=== PATIENT | female | born 1950 | race African-American/Black ===

== ENCOUNTER 2025-04-09 19:30 | Inpatient (IN) | payer MEDICARE, MEDICAID ==
[~2025-04-09] VITALS: Ht 167.6 cm; Wt 70.4 kg
[2025-04-09] MEDS: INSULIN REGULAR (HUMULIN R) 1000UNITS/10ML VIAL IV NR (00:45)
[2025-04-09 19:34] VITALS: RESP 35
[2025-04-09 20:22] LABS: BASOPHILS % 0.2 % (0.0-2.0); EOSINOPHILS % 0.0 % (0.0-5.0); HEMATOCRIT. 41.6 % (36.0-48.0); HEMOGLOBIN. 13.1 g/dL (12.0-16.0); LYMPHOCYTES % 11.7 % (20.0-50.0); MEAN PLATELET VOLUME 10.9 fl (7.4-10.4); MONOCYTES % 5.7 % (2.0-8.0); NEUTROPHILS % 82.4 % (40.0-76.0); PLATELET 238 x1000/uL (130-400); RED BLOOD CELL COUNT 4.66 mill/uL (4.2-5.4); RED CELL DISTRIBUTION WIDTH 13.8 % (11.6-14.6)
[2025-04-09 20:32] LABS: INR 1.0
[2025-04-09 20:36] LABS: CREATININE 1.5 mg/dL (0.6-1.0); UREA NITROGEN BLOOD 20 mg/dL (9-23)
[2025-04-09 20:37] LABS: PROTEIN TOTAL 7.4 g/dL (6.0-8.3)
[2025-04-09 20:38] LABS: ASPARTATE AMINOTRANSFERASE 35 IU/L (<34); BILIRUBIN DIRECT 0.2 mg/dL (<=3.0)
[2025-04-09 20:39] LABS: BILIRUBIN TOTAL 0.8 mg/dL (0.1-1.0)
[2025-04-09 21:12] LABS: TROPONIN I HIGH SENSITIVITY 461 ng/L (3.0-34)
[2025-04-09] MEDS: LEVOFLOXACIN 750MG PREMIX 150 ML IV ONE (21:33)
[2025-04-09] MEDS: ASPIRIN 325MG TABLET PO ONE (21:33)
[2025-04-09 21:40] LABS: BG DEOXYHEMOGLOBIN 37.4 % (0.0-5.0)
[2025-04-09 23:08] LABS: GLUCOSE URINE 3+ (NEGATIVE); KETONES URINE NEGATIVE (NEGATIVE); LEUKOCYTE ESTERASE URINE NEGATIVE (NEGATIVE); NITRITE URINE NEGATIVE (NEGATIVE); OCCULT BLOOD URINE 1+ (NEGATIVE); PH URINE 5.5 (4.5-8.0); PROTEIN URINE 2+ (NEGATIVE); SPECIFIC GRAVITY URINE 1.018 (1.005-1.030); UROBILINOGEN URINE 1.0 E.U./dL (0.2-1.0)
[2025-04-09 23:18] LABS: TROPONIN I HIGH SENSITIVITY 15597 ng/L (3.0-34)
[2025-04-09 23:34] LABS: COLOR URINE STRAW (YELLOW)
[2025-04-09] MEDS: INSULIN REGULAR (HUMULIN R) 1000UNITS/10ML VIAL IV ONE (23:35)
[2025-04-09 23:36] LABS: CLARITY URINE SL HAZY (CLEAR)
[2025-04-09 23:37] LABS: RBC URINE NONE SEEN /hpf (0-2)
[2025-04-09 23:38] LABS: BACTERIA URINE TRACE; MUCUS URINE TRACE /lpf (< = 2+); SQUAMOUS EPITHELIAL CELL URINE 1+ /lpf (RARE/1+)
[2025-04-09] MEDS ORDERED: DEXTROSE 50% WATER 50ML SYRINGE IV PRN (23:45)
[2025-04-09] MEDS ORDERED: PIPERACILLIN/TAZO 3.375G/50ML 50 ML IV STA (23:54)
[2025-04-09] MEDS ORDERED: VANCOMYCIN 1G PREMIX 200 ML IV STA (23:54)
[2025-04-10] VITALS (14 sets, daily range): BP systolic 110–153; BP diastolic 65–111; PULSE 78–112; RESP 19–26; TEMP 35.8–36.8; O2SAT 93–98
[2025-04-10] MEDS ORDERED: LISINOPRIL 20MG TABLET PO SCH (00:30)
[2025-04-10] MEDS ORDERED: NITROGLYCERIN 0.4MG TABLET SL SL PRN (00:30)
[2025-04-10] MEDS ORDERED: CLONIDINE 0.1MG TABLET PO PRN (00:30)
[2025-04-10] MEDS ORDERED: ACETAMINOPHEN 325MG TABLET PO PRN ×2 (00:30)
[2025-04-10] MEDS ORDERED: IPRATROPIUM/ALBUTEROL 0.5-3(2.5)MG/3ML NEB HHN PRN (00:30)
[2025-04-10] MEDS ORDERED: ONDANSETRON HCL 4MG/2ML INJ IV PRN (00:30)
[2025-04-10 01:02] LABS: BG BASE EXCESS -6.7 mmol/L (-2.0-3.0); BG CARBOXYHEMOGLOBIN 0.4 % (0.5-1.5); BG DEOXYHEMOGLOBIN 6.9 % (0.0-5.0); BG FRACTION INSPIRED OXYGEN 36; BG HCO3 ACT 16.2 mmol/L (21.0-28.0); BG METHEMOGLOBIN 0.3 % (0.5-1.5); BG OXYGEN SATURATION 93.1 % (94.0-98.0); BG OXYHEMOGLOBIN 92.4 % (94.0-98.0); BG PCO2 25.9 mmHg (32.0-45.0); BG PH 7.415 (7.350-7.450); BG PO2 62.0 mmHg (83.0-108.0); BG SAMPLE SITE RIGHT RADIAL; BG TOTAL HEMOGLOBIN 12.8 g/dL (12.0-16.0); BG VENT MODE NASAL CANNULA
[2025-04-10] MEDS: ENOXAPARIN 80MG/0.8ML SYR SUBCUT SCH ×2 (01:26→12:49)
[2025-04-10] MEDS: CLOPIDOGREL 75MG TABLET PO SCH (01:26)
[2025-04-10] MEDS: ATORVASTATIN CALCIUM 40MG TABLET PO SCH (01:32)
[2025-04-10 01:34] LABS: CREATININE 1.3 mg/dL (0.6-1.0); UREA NITROGEN BLOOD 24 mg/dL (9-23)
[2025-04-10 01:36] LABS: PHOSPHORUS 3.7 mg/dL (2.5-4.9)
[2025-04-10] MEDS: FUROSEMIDE 40MG/4ML VIAL IVP NR (01:46)
[2025-04-10] MEDS: CEFTRIAXONE 1GM/50ML 50 ML IV SCH (03:53)
[2025-04-10 07:12] LABS: CREATININE 1.1 mg/dL (0.6-1.0); UREA NITROGEN BLOOD 26.0 mg/dL (9-23)
[2025-04-10] MEDS: BLOOD SUGAR DIAGNOSTIC STRIP TEST SCH (07:24)
[2025-04-10] MEDS: INSULIN LISPRO 100 UNITS/ML SUBCUT SCH (07:25)
[2025-04-10 07:32] LABS: TROPONIN I HIGH SENSITIVITY 36359 ng/L (3.0-34)
[2025-04-10] MEDS: INSULIN GLARGINE 100 UNITS/ML SUBCUT SCH (09:00)
[2025-04-10] MEDS ORDERED: AZITHROMYCIN 500MG/250ML 250 ML IV SCH (09:00)
[2025-04-10] MEDS ORDERED: DOXYCYCLINE HYCLATE 100 MG/VIAL IV SCH (09:00)
[2025-04-10] MEDS ORDERED: CARVEDILOL 3.125 MG TABLET PO SCH (09:00)
[2025-04-10] MEDS: FUROSEMIDE 40MG/4ML VIAL IVP SCH (10:06)
[2025-04-10] MEDS: ASPIRIN 81MG EC TABLET PO SCH (10:06)
[2025-04-10] MEDS: CARVEDILOL 6.25 MG TABLET PO SCH (10:06)
[2025-04-10] MEDS: PANTOPRAZOLE SODIUM 40 MG/VIAL IV SCH (10:07)
[2025-04-10] MEDS: DOXYCYCLINE 100MG/100ML 100 ML IV SCH (10:07)
[2025-04-10 19:23] LABS: SODIUM URINE RANDOM 98 mEq/L
[2025-04-10 19:26] LABS: TROPONIN I HIGH SENSITIVITY 12450 ng/L (3.0-34)
[2025-04-10 19:30] LABS: *AMPHETAMINES SCREEN URINE NEGATIVE (NEGATIVE); *BARBITURATES SCREEN URINE NEGATIVE (NEGATIVE); *BENZODIAZEPINES SCREEN URINE NEGATIVE (NEGATIVE); *COCAINE SCREEN URINE NEGATIVE (NEGATIVE); ECSTASY MDMA SCREEN URINE NEGATIVE (NEGATIVE); METHADONE URINE SCREEN NEGATIVE (NEGATIVE); OPIATES URINE SCREEN PRESUMPTIVE POSITIVE (NEGATIVE)
[2025-04-10 19:31] LABS: CANNABINOID URINE SCREEN NEGATIVE (NEGATIVE); PHENCYCLIDINE URINE SCREEN NEGATIVE (NEGATIVE)
[2025-04-10 19:35] LABS: OSMOLALITY URINE 367 mOsm/kg (500-850)
[2025-04-10] MEDS: PNEUMOCOCCAL 20-VAL CONJ-DIP CRM 0.5ML IM ONE (21:00)
[2025-04-10] MEDS: INFLUENZA VACCINE 05/PF 0.5 ML SYRINGE IM ONE (21:00)
[2025-04-11] VITALS (13 sets, daily range): BP systolic 111–152; BP diastolic 61–101; PULSE 76–89; RESP 16–30; TEMP 36.3–36.9; O2SAT 94–100
[2025-04-11 07:20] LABS: CREATININE 1.4 mg/dL (0.6-1.0)
[2025-04-11 07:21] LABS: BASOPHILS % 0.4 % (0.0-2.0); EOSINOPHILS % 1.1 % (0.0-5.0); HEMATOCRIT. 36.4 % (36.0-48.0); HEMOGLOBIN. 11.9 g/dL (12.0-16.0); LDL CHOLESTEROL 121.0 mg/dL (5-100); LYMPHOCYTES % 33.7 % (20.0-50.0); MEAN PLATELET VOLUME 10.6 fl (7.4-10.4); MONOCYTES % 8.3 % (2.0-8.0); NEUTROPHILS % 56.5 % (40.0-76.0); PLATELET 166 x1000/uL (130-400); RED BLOOD CELL COUNT 4.13 mill/uL (4.2-5.4); RED CELL DISTRIBUTION WIDTH 13.3 % (11.6-14.6); TRIGLYCERIDE 129.0 mg/dL (0-150); UREA NITROGEN BLOOD 29.0 mg/dL (9-23)
[2025-04-11 07:22] LABS: T4 FREE 1.32 ng/dL (0.89-1.76)
[2025-04-11] MEDS: LOSARTAN 50 MG TABLET PO SCH (12:19)
[2025-04-11 12:29] LABS: BG BASE EXCESS -4.6 mmol/L (-2.0-3.0); BG CARBOXYHEMOGLOBIN 0.3 % (0.5-1.5); BG DEOXYHEMOGLOBIN 6.7 % (0.0-5.0); BG FRACTION INSPIRED OXYGEN 21; BG HCO3 ACT 18.3 mmol/L (21.0-28.0); BG METHEMOGLOBIN 0.3 % (0.5-1.5); BG OXYGEN SATURATION 93.3 % (94.0-98.0); BG OXYHEMOGLOBIN 92.7 % (94.0-98.0); BG PCO2 28.0 mmHg (32.0-45.0); BG PH 7.433 (7.350-7.450); BG PO2 65.1 mmHg (83.0-108.0); BG SAMPLE SITE RIGHT RADIAL; BG TOTAL HEMOGLOBIN 12.8 g/dL (12.0-16.0); BG VENT MODE ROOM AIR
[2025-04-11] MEDS: IPRATROPIUM/ALBUTEROL 0.5-3(2.5)MG/3ML NEB HHN SCH (15:05)
[2025-04-11] MEDS ORDERED: ENOXAPARIN 40MG/0.4ML SYR SUBCUT SCH (21:00)
[2025-04-12] VITALS (8 sets, daily range): BP systolic 130–151; BP diastolic 58–99; PULSE 75–88; RESP 16–26; TEMP 35.8–36.9; O2SAT 96–100
[2025-04-12 06:10] LABS: CREATININE 1.4 mg/dL (0.6-1.0); UREA NITROGEN BLOOD 36.0 mg/dL (9-23)
[2025-04-12 06:13] LABS: TROPONIN I HIGH SENSITIVITY 5747 ng/L (3.0-34)
[2025-04-12 06:55] LABS: BASOPHILS % 0.3 % (0.0-2.0); EOSINOPHILS % 1.0 % (0.0-5.0); HEMATOCRIT. 37.6 % (36.0-48.0); HEMOGLOBIN. 12.3 g/dL (12.0-16.0); LYMPHOCYTES % 30.1 % (20.0-50.0); MEAN PLATELET VOLUME 10.5 fl (7.4-10.4); MONOCYTES % 10.7 % (2.0-8.0); NEUTROPHILS % 57.9 % (40.0-76.0); PLATELET 139 x1000/uL (130-400); RED BLOOD CELL COUNT 4.26 mill/uL (4.2-5.4); RED CELL DISTRIBUTION WIDTH 13.5 % (11.6-14.6)
[2025-04-12] MEDS: FAMOTIDINE 20MG/2ML VIAL IV SCH (08:19)
[2025-04-12] MEDS ORDERED: LIDOCAINE HCL 1% 20ML VIAL ONE (08:23)
[2025-04-12] MEDS ORDERED: IODIXANOL 320MG/ML 100 ML BOTTLE IV ONE (08:23)
[2025-04-12] MEDS ORDERED: HEPARIN 1000 UNITS/ML 10ML ONE (08:23)
[2025-04-12] MEDS ORDERED: MIDAZOLAM HCL 2 MG/2 ML VIAL ONE (08:59)
[2025-04-12] MEDS ORDERED: CLOPIDOGREL 75MG TABLET PO SCH (09:00)
[2025-04-12] MEDS ORDERED: FENTANYL CITRATE/PF 50MCG/ML 2ML VIAL ONE (09:00)
[2025-04-12] MEDS ORDERED: ATROPINE SULFATE 1MG/10ML SYR IV PRN (10:00)
[2025-04-12] MEDS: IOHEXOL-350 100 ML BOTTLE ONE (10:07)
[2025-04-12] MEDS: ENOXAPARIN 40MG/0.4ML SYR SUBCUT SCH (11:14)
[2025-04-12] MEDS ORDERED: ACETAMINOPHEN 325MG TABLET PO PRN (14:45)
[2025-04-12] MEDS: CHLORHEXIDINE GLUCONATE 4% EXTERNAL USE TOP SCH (20:51)
[2025-04-12] MEDS ORDERED: DIPHENHYDRAMINE 25MG CAPSULE PO PRN (21:00)
[2025-04-12] MEDS ORDERED: BISACODYL 10MG SUPP PR PRN (21:00)
[2025-04-12] MEDS: DOCUSATE SODIUM 100MG CAPSULE PO SCH (21:49)
[2025-04-12] MEDS: ASCORBIC ACID 500 MG TABLET PO SCH (21:51)
[2025-04-12] MEDS: ALLOPURINOL 300 MG TABLET PO SCH (21:51)
[2025-04-13] VITALS (57 sets, daily range): BP systolic 105–140; BP diastolic 63–95; PULSE 68–90; RESP 11–34; TEMP 36–36.9; O2SAT 95–100
[2025-04-13] MEDS ORDERED: DOBUTAMINE 250 MG/250 ML PREMIX IV PRN (05:00)
[2025-04-13] MEDS ORDERED: DEL NIDO CARDIOPLEGIA 1,000 ML (PREMIX) IV NR ×2 (05:00)
[2025-04-13] MEDS ORDERED: DOPAMINE 400MG/250ML PREMIX 250 ML IV PRN (05:00)
[2025-04-13] MEDS ORDERED: AMINOCAPROIC ACID 5,000 MG in SODIUM CHLORIDE 0.9% 250 ML IV PRN (05:00)
[2025-04-13] MEDS ORDERED: NICARDIPINE 40MG/200ML PREMIX 200 ML IV PRN (05:00)
[2025-04-13] MEDS: INSULIN REGULAR 100U/100ML PMX 100 ML IV SCH ×2 (05:00→11:06)
[2025-04-13] MEDS ORDERED: NOREPINEPHRINE 8MG/250ML PMX 250 ML IV PRN (05:00)
[2025-04-13] MEDS: VANCOMYCIN 1G PREMIX 200 ML IV SCH (05:00)
[2025-04-13] MEDS ORDERED: PAPAVERINE HCL 180MG in SODIUM CHLORIDE 0.9% 24ML IV PRN (05:00)
[2025-04-13] MEDS ORDERED: LR with VERAPAMIL, NTG, HEPARIN, SODIUM BICARBONATE (Soln) IV PRN (05:00)
[2025-04-13 05:31] LABS: BASOPHILS % 0.4 % (0.0-2.0); EOSINOPHILS % 1.8 % (0.0-5.0); HEMATOCRIT. 38.3 % (36.0-48.0); HEMOGLOBIN. 12.4 g/dL (12.0-16.0); LYMPHOCYTES % 30.5 % (20.0-50.0); MEAN PLATELET VOLUME 10.9 fl (7.4-10.4); MONOCYTES % 9.9 % (2.0-8.0); NEUTROPHILS % 57.4 % (40.0-76.0); PLATELET 163 x1000/uL (130-400); RED BLOOD CELL COUNT 4.38 mill/uL (4.2-5.4); RED CELL DISTRIBUTION WIDTH 13.6 % (11.6-14.6)
[2025-04-13 05:39] LABS: CREATININE 1.2 mg/dL (0.6-1.0); UREA NITROGEN BLOOD 21.0 mg/dL (9-23)
[2025-04-13] MEDS ORDERED: POLYMYXIN B SULFATE 500000 UNITS/VIAL ONE (05:50)
[2025-04-13] MEDS ORDERED: THROMBIN (BOVINE) 5000 UNITS/VIAL TOP ONE (05:50)
[2025-04-13] MEDS: CHLORHEXIDINE GLUCONATE 4% EXTERNAL USE TOP SCH (06:00)
[2025-04-13] MEDS ORDERED: HEPARIN 1000 UNITS/ML 10ML ONE ×2 (06:17→09:35)
[2025-04-13] MEDS ORDERED: SEVOFLURANE 250 ML LIQUID INH ONE (06:17)
[2025-04-13] MEDS ORDERED: ACETAMINOPHEN 1000MG/100ML 100 ML IV ONE (06:26)
[2025-04-13] MEDS ORDERED: SKIN ADHESIVE 0.7 GM EA TOP ONE (06:26)
[2025-04-13] MEDS ORDERED: DEXMEDETOMIDINE 100 ML IV ONE (06:32)
[2025-04-13] MEDS ORDERED: ROCURONIUM BROMIDE 10MG/ML VIAL 5ML IV ONE ×2 (07:05→09:00)
[2025-04-13] MEDS ORDERED: FENTANYL CITRATE/PF 50MCG/ML 2ML VIAL ONE (07:06)
[2025-04-13] MEDS ORDERED: MAGNESIUM SULFATE 5GM/10ML VIAL IV ONE (07:11)
[2025-04-13] MEDS ORDERED: HEPARIN 10,000 UNITS/ML VIAL ONE (07:58)
[2025-04-13] MEDS ORDERED: POTASSIUM CHLORIDE 40MEQ/20ML INJ IV ONE (07:58)
[2025-04-13] MEDS ORDERED: CALCIUM CHLORIDE 1GM/10ML SYR IV ONE (08:45)
[2025-04-13] MEDS ORDERED: SODIUM BICARBONATE 8.4% 50MEQ/50ML SYR IV ONE ×2 (08:52→10:02)
[2025-04-13] MEDS ORDERED: FUROSEMIDE 100MG/10ML VIAL ONE (09:00)
[2025-04-13] MEDS: ASPIRIN 81MG TABLET PO SCH (09:00)
[2025-04-13] MEDS ORDERED: AMINOCAPROIC ACID 250 MG/ML 20ML VIAL ONE (09:00)
[2025-04-13] MEDS ORDERED: ATROPINE SULFATE 1MG/10ML SYR ONE (09:30)
[2025-04-13] MEDS ORDERED: ONDANSETRON HCL 4MG/2ML INJ ONE ×2 (09:35→09:52)
[2025-04-13] MEDS ORDERED: PROTAMINE SULFATE 10MG/ML VIAL 25ML IV ONE (09:38)
[2025-04-13] MEDS ORDERED: DESMOPRESSIN ACETATE 4MCG/ML AMP ONE (09:43)
[2025-04-13] MEDS: BLOOD SUGAR DIAGNOSTIC STRIP TEST SCH (10:00)
[2025-04-13] MEDS ORDERED: DEXTROSE 50% WATER 50ML SYRINGE IV PRN ×2 (10:00)
[2025-04-13] MEDS ORDERED: KCL 10MEQ/50ML PREMIX 200 ML IV PRN (10:00)
[2025-04-13] MEDS: DEXT 5%/0.45% NACL 1000ML 1,000 ML IV SCH (10:00)
[2025-04-13] MEDS ORDERED: KCL 10MEQ/50ML PREMIX 150 ML IV PRN (10:00)
[2025-04-13] MEDS: DOPAMINE 400MG/250ML PREMIX 250 ML IV SCH (10:15)
[2025-04-13] MEDS ORDERED: SODIUM CHLORIDE 0.9% 500 ML IV PRN (10:15)
[2025-04-13] MEDS ORDERED: MAGNESIUM 2 G PREMIX 50 ML IV PRN (10:15)
[2025-04-13] MEDS ORDERED: EPINEPHRINE 5 MG in DEXT 5% WATER 245 ML IV SCH (10:15)
[2025-04-13] MEDS ORDERED: MAGNESIUM SULFATE 3 GM in DEXT 5% WATER 100 ML IV PRN (10:15)
[2025-04-13] MEDS ORDERED: MORPHINE SULFATE 2 MG/ML INJ (NOT FOR IM USE) IV PRN (10:15)
[2025-04-13] MEDS ORDERED: CALCIUM CHLORIDE 3,000 MG in DEXT 5% WATER 250 ML IV PRN (10:15)
[2025-04-13] MEDS: IPRATROPIUM/ALBUTEROL 0.5-3(2.5)MG/3ML NEB HHN SCH (10:15)
[2025-04-13] MEDS ORDERED: ALBUMIN HUMAN 25GM/100ML (25%) IV PRN (10:15)
[2025-04-13] MEDS ORDERED: CALCIUM CHLORIDE 5,000 MG in DEXT 5% WATER 500 ML IV PRN (10:15)
[2025-04-13] MEDS ORDERED: MAGNESIUM 1 G PREMIX 100 ML IV PRN (10:15)
[2025-04-13] MEDS ORDERED: ALBUMIN HUMAN 12.5G/250ML (5%) IV PRN (10:15)
[2025-04-13] MEDS ORDERED: ACETAMINOPHEN 325MG TABLET PO PRN (10:15)
[2025-04-13] MEDS ORDERED: ONDANSETRON HCL 4MG/2ML INJ IV PRN (10:15)
[2025-04-13] MEDS ORDERED: KETOROLAC 30MG/ML VIAL ONE (10:22)
[2025-04-13 10:26] LABS: BASOPHILS % 0.2 % (0.0-2.0); EOSINOPHILS % 2.0 % (0.0-5.0); HEMATOCRIT. 31.7 % (36.0-48.0); HEMOGLOBIN. 10.6 g/dL (12.0-16.0); LYMPHOCYTES % 36.4 % (20.0-50.0); MEAN PLATELET VOLUME 10.6 fl (7.4-10.4); MONOCYTES % 4.6 % (2.0-8.0); NEUTROPHILS % 56.8 % (40.0-76.0); PLATELET 220 x1000/uL (130-400); RED BLOOD CELL COUNT 3.67 mill/uL (4.2-5.4); RED CELL DISTRIBUTION WIDTH 13.5 % (11.6-14.6)
[2025-04-13 10:36] LABS: INR 1.1
[2025-04-13 10:47] LABS: CREATININE 1.2 mg/dL (0.6-1.0); UREA NITROGEN BLOOD 29 mg/dL (9-23)
[2025-04-13 10:49] LABS: ASPARTATE AMINOTRANSFERASE 65 IU/L (<34); BILIRUBIN TOTAL 0.4 mg/dL (0.1-1.0); PHOSPHORUS 3.4 mg/dL (2.5-4.9)
[2025-04-13] MEDS: EPINEPHRINE 5 MG in DEXT 5% WATER 250 ML IV PRN (11:00)
[2025-04-13 11:01] LABS: PROTEIN TOTAL 5.1 g/dL (6.0-8.3)
[2025-04-13 11:06] LABS: BG BASE EXCESS -0.1 mmol/L (-2.0-3.0); BG CARBOXYHEMOGLOBIN 1.1 % (0.5-1.5); BG DEOXYHEMOGLOBIN 1.3 % (0.0-5.0); BG FLOW(L/min) 15.00 L/min; BG FRACTION INSPIRED OXYGEN 100; BG HCO3 ACT 24.9 mmol/L (21.0-28.0); BG METHEMOGLOBIN 0.0 % (0.5-1.5); BG OXYGEN SATURATION 98.7 % (94.0-98.0); BG OXYHEMOGLOBIN 97.6 % (94.0-98.0); BG PCO2 41.9 mmHg (32.0-45.0); BG PH 7.392 (7.350-7.450); BG PO2 125.7 mmHg (83.0-108.0); BG SAMPLE SITE ALINE; BG TOTAL HEMOGLOBIN 12.7 g/dL (12.0-16.0); BG VENT MODE MASK - NRB
[2025-04-13 11:41] LABS: BASOPHILS % 0.2 % (0.0-2.0); EOSINOPHILS % 1.9 % (0.0-5.0); HEMATOCRIT. 36.6 % (36.0-48.0); HEMOGLOBIN. 11.9 g/dL (12.0-16.0); LYMPHOCYTES % 22.2 % (20.0-50.0); MEAN PLATELET VOLUME 10.0 fl (7.4-10.4); MONOCYTES % 7.4 % (2.0-8.0); NEUTROPHILS % 68.3 % (40.0-76.0); PLATELET 221 x1000/uL (130-400); RED BLOOD CELL COUNT 4.24 mill/uL (4.2-5.4); RED CELL DISTRIBUTION WIDTH 13.7 % (11.6-14.6)
[2025-04-13 11:58] LABS: CREATININE 1.2 mg/dL (0.6-1.0); UREA NITROGEN BLOOD 27 mg/dL (9-23)
[2025-04-13 12:00] LABS: PHOSPHORUS 3.3 mg/dL (2.5-4.9)
[2025-04-13] MEDS ORDERED: POTASSIUM CHLORIDE 40 MEQ in DEXT 5% WATER 230 ML IV ONE (12:30)
[2025-04-13] MEDS: KCL 20MEQ/100ML X 2 FOR TOTAL KCL 40MEQ/200ML IV SCH (12:45)
[2025-04-13] MEDS: MAGNESIUM HYDROXIDE 400MG/5ML 30ML UDC PO SCH (13:05)
[2025-04-13] MEDS: KCL 20MEQ/100ML PREMIX 100 ML IV SCH (13:06)
[2025-04-13] MEDS: CLOPIDOGREL 75MG TABLET PO SCH (13:18)
[2025-04-13] MEDS: ASPIRIN 81MG EC TABLET PO SCH (13:18)
[2025-04-13] MEDS: MAGNESIUM 2 G PREMIX 50 ML IV SCH (14:23)
[2025-04-13] MEDS: CEFAZOLIN 1000MG PREMIX 50 ML IV SCH (16:23)
[2025-04-13] MEDS: ACETAMINOPHEN 325MG TABLET PO PRN (16:29)
[2025-04-13 17:36] LABS: BASOPHILS % 0.2 % (0.0-2.0); EOSINOPHILS % 0.1 % (0.0-5.0); HEMATOCRIT. 36.2 % (36.0-48.0); HEMOGLOBIN. 11.8 g/dL (12.0-16.0); LYMPHOCYTES % 11.7 % (20.0-50.0); MEAN PLATELET VOLUME 9.9 fl (7.4-10.4); MONOCYTES % 8.4 % (2.0-8.0); NEUTROPHILS % 79.6 % (40.0-76.0); PLATELET 307 x1000/uL (130-400); RED BLOOD CELL COUNT 4.22 mill/uL (4.2-5.4); RED CELL DISTRIBUTION WIDTH 13.5 % (11.6-14.6)
[2025-04-13 17:50] LABS: CREATININE 1.2 mg/dL (0.6-1.0); UREA NITROGEN BLOOD 26 mg/dL (9-23)
[2025-04-13 17:52] LABS: PHOSPHORUS 3.9 mg/dL (2.5-4.9)
[2025-04-13] MEDS: METOCLOPRAMIDE HCL 10MG/2ML VIAL IV SCH (18:19)
[2025-04-13 18:31] LABS: INR 1.0
[2025-04-13] MEDS: DOCUSATE SODIUM 100MG CAPSULE PO SCH (20:49)
[2025-04-13] MEDS: OXYCODONE HCL/ACETAMINOPHEN 5/325MG TABLET PO PRN (20:52)
[2025-04-13] MEDS: BACITRACIN 14GM TUBE TOP SCH (21:09)
[2025-04-13 22:11] LABS: BASOPHILS % 0.1 % (0.0-2.0); EOSINOPHILS % 0.1 % (0.0-5.0); HEMATOCRIT. 32.4 % (36.0-48.0); HEMOGLOBIN. 10.7 g/dL (12.0-16.0); LYMPHOCYTES % 12.9 % (20.0-50.0); MEAN PLATELET VOLUME 10.3 fl (7.4-10.4); MONOCYTES % 8.2 % (2.0-8.0); NEUTROPHILS % 78.7 % (40.0-76.0); PLATELET 251 x1000/uL (130-400); RED BLOOD CELL COUNT 3.75 mill/uL (4.2-5.4); RED CELL DISTRIBUTION WIDTH 13.5 % (11.6-14.6)
[2025-04-13 22:26] LABS: CREATININE 1.1 mg/dL (0.6-1.0)
[2025-04-13 22:27] LABS: UREA NITROGEN BLOOD 24 mg/dL (9-23)
[2025-04-13 22:29] LABS: PHOSPHORUS 3.6 mg/dL (2.5-4.9)
[2025-04-13] MEDS: KCL 10MEQ/50ML PREMIX 100 ML IV PRN (22:35)
[2025-04-13] MEDS: MAGNESIUM 2 G PREMIX 50 ML IV PRN (22:38)
[2025-04-14] VITALS (102 sets, daily range): BP systolic 103–183; BP diastolic 59–101; PULSE 72–187; RESP 11–38; TEMP 36.6–37; O2SAT 94–100
[2025-04-14] MEDS ORDERED: CALCIUM GLUCONATE 1GM PREMIX 50 ML IV ONE ×3 (01:30)
[2025-04-14] MEDS: FUROSEMIDE 40MG/4ML VIAL IVP NR (01:42)
[2025-04-14] MEDS: CALCIUM GLUCONATE 3,000 MG in DEXT 5% WATER 70 ML IV NR (01:56)
[2025-04-14 06:56] LABS: BASOPHILS % 0.2 % (0.0-2.0); EOSINOPHILS % 0.2 % (0.0-5.0); HEMATOCRIT. 35.0 % (36.0-48.0); HEMOGLOBIN. 11.6 g/dL (12.0-16.0); LYMPHOCYTES % 14.3 % (20.0-50.0); MEAN PLATELET VOLUME 10.1 fl (7.4-10.4); MONOCYTES % 8.2 % (2.0-8.0); NEUTROPHILS % 77.1 % (40.0-76.0); PLATELET 228 x1000/uL (130-400); RED BLOOD CELL COUNT 4.09 mill/uL (4.2-5.4); RED CELL DISTRIBUTION WIDTH 13.5 % (11.6-14.6)
[2025-04-14 07:09] LABS: CREATININE 1.4 mg/dL (0.6-1.0)
[2025-04-14 07:12] LABS: UREA NITROGEN BLOOD 22 mg/dL (9-23)
[2025-04-14 07:14] LABS: PHOSPHORUS 4.3 mg/dL (2.5-4.9)
[2025-04-14] MEDS: BLOOD SUGAR DIAGNOSTIC STRIP TEST SCH (07:30)
[2025-04-14] MEDS: ASPIRIN 81MG EC TABLET PO SCH (08:05)
[2025-04-14] MEDS: CLOPIDOGREL 75MG TABLET PO SCH (08:05)
[2025-04-14] MEDS: KETOROLAC 30MG/ML VIAL IV PRN (08:05)
[2025-04-14] MEDS: FUROSEMIDE 100MG/10ML VIAL IVP NR (08:41)
[2025-04-14] MEDS: MIDODRINE HCL 5MG TABLET PO SCH (08:41)
[2025-04-14] MEDS: METOLAZONE 10MG TABLET PO NR (10:04)
[2025-04-14] MEDS: BUMETANIDE 2.5MG/10ML VIAL IV NR (10:04)
[2025-04-14 10:08] LABS: BG BASE EXCESS 0.9 mmol/L (-2.0-3.0); BG CARBOXYHEMOGLOBIN 0.9 % (0.5-1.5); BG DEOXYHEMOGLOBIN 8.6 % (0.0-5.0); BG FLOW(L/min) 9.00 L/min; BG FRACTION INSPIRED OXYGEN 60; BG HCO3 ACT 24.4 mmol/L (21.0-28.0); BG METHEMOGLOBIN 0.3 % (0.5-1.5); BG OXYGEN SATURATION 91.3 % (94.0-98.0); BG OXYHEMOGLOBIN 90.2 % (94.0-98.0); BG PCO2 35.3 mmHg (32.0-45.0); BG PH 7.458 (7.350-7.450); BG PO2 57.3 mmHg (83.0-108.0); BG SAMPLE SITE RIGHT BRACHIAL; BG TOTAL HEMOGLOBIN 12.3 g/dL (12.0-16.0); BG VENT MODE MASK - SIMPLE
[2025-04-14] MEDS ORDERED: AMIODARONE 360MG/200ML 200 ML IV SCH (15:30)
[2025-04-14] MEDS: MAGNESIUM 1 G PREMIX 100 ML IV PRN (15:31)
[2025-04-14] MEDS: AMIODARONE 150MG/100ML D5W 100 ML IV SCH (15:32)
[2025-04-14] MEDS: AMIODARONE HCL 900 MG in DEXT 5% WATER 500 ML IV SCH (15:49)
[2025-04-14] MEDS: AMIODARONE 200MG TABLET PO SCH (20:36)
[2025-04-14] MEDS: GUAIFENESIN 600MG ER TABLET PO SCH (20:36)
[2025-04-14] MEDS: DIPHENHYDRAMINE 50MG/ML VIAL IV NR (20:37)
[2025-04-15] VITALS (96 sets, daily range): BP systolic 103–162; BP diastolic 47–132; PULSE 70–93; RESP 12–36; TEMP 36.1–37; O2SAT 89–100
[2025-04-15 06:41] LABS: BASOPHILS % 0.2 % (0.0-2.0); EOSINOPHILS % 0.4 % (0.0-5.0); HEMATOCRIT. 35.6 % (36.0-48.0); HEMOGLOBIN. 11.6 g/dL (12.0-16.0); LYMPHOCYTES % 19.5 % (20.0-50.0); MEAN PLATELET VOLUME 10.8 fl (7.4-10.4); MONOCYTES % 11.7 % (2.0-8.0); NEUTROPHILS % 68.2 % (40.0-76.0); PLATELET 172 x1000/uL (130-400); RED BLOOD CELL COUNT 4.09 mill/uL (4.2-5.4); RED CELL DISTRIBUTION WIDTH 13.3 % (11.6-14.6)
[2025-04-15 07:10] LABS: CREATININE 1.6 mg/dL (0.6-1.0); UREA NITROGEN BLOOD 26 mg/dL (9-23)
[2025-04-15 07:12] LABS: PHOSPHORUS 5.3 mg/dL (2.5-4.9)
[2025-04-15] MEDS ORDERED: TRAMADOL HCL/ACETAMINOPHEN 37.5/325MG TABLET PO PRN (08:00)
[2025-04-15] MEDS: MAGNESIUM 2 G PREMIX 50 ML IV SCH (09:14)
[2025-04-15] MEDS: BUMETANIDE 2.5MG/10ML VIAL IV SCH (09:30)
[2025-04-15] MEDS: ASPIRIN 81MG TABLET PO SCH (09:34)
[2025-04-15] MEDS: CLOPIDOGREL 75MG TABLET PO SCH (09:34)
[2025-04-15] MEDS: KCL 20MEQ/100ML PREMIX 100 ML IV SCH (09:37)
[2025-04-15] MEDS: METOLAZONE 10MG TABLET PO SCH (09:37)
[2025-04-15] MEDS ORDERED: BLOOD SUGAR DIAGNOSTIC STRIP TEST SCH (12:50)
[2025-04-15] MEDS ORDERED: DOPAMINE 400MG/250ML PREMIX 250 ML IV ONE (13:59)
[2025-04-16] VITALS (35 sets, daily range): BP systolic 105–152; BP diastolic 58–113; PULSE 83–117; RESP 12–33; TEMP 36.4–37.4; O2SAT 89–100
[2025-04-16] MEDS ORDERED: AMIODARONE 360MG/200ML 200 ML IV SCH (07:00)
[2025-04-16] MEDS: AMIODARONE 150MG/100ML D5W 100 ML IV NR (07:10)
[2025-04-16] MEDS ORDERED: AMIODARONE HCL 900 MG in DEXT 5% WATER 500 ML IV SCH (08:00)
[2025-04-16 08:31] LABS: BASOPHILS % 0.3 % (0.0-2.0); EOSINOPHILS % 0.5 % (0.0-5.0); HEMATOCRIT. 34.3 % (36.0-48.0); HEMOGLOBIN. 11.3 g/dL (12.0-16.0); LYMPHOCYTES % 17.6 % (20.0-50.0); MEAN PLATELET VOLUME 11.0 fl (7.4-10.4); MONOCYTES % 11.0 % (2.0-8.0); NEUTROPHILS % 70.6 % (40.0-76.0); PLATELET 174 x1000/uL (130-400); RED BLOOD CELL COUNT 4.03 mill/uL (4.2-5.4); RED CELL DISTRIBUTION WIDTH 13.3 % (11.6-14.6)
[2025-04-16 09:15] LABS: CREATININE 1.7 mg/dL (0.6-1.0); UREA NITROGEN BLOOD 48 mg/dL (9-23)
[2025-04-16 09:17] LABS: PHOSPHORUS 5.0 mg/dL (2.5-4.9)
[2025-04-16] MEDS ORDERED: NALOXONE HCL 0.4MG/ML VIAL IV PRN (10:30)
[2025-04-16] MEDS: POTASSIUM CHLORIDE 20MEQ TABLET SR PO NR (11:45)
[2025-04-16] MEDS: FAMOTIDINE 20MG TABLET PO SCH (11:45)
[2025-04-16 17:30] LABS: BG BASE EXCESS 5.8 mmol/L (-2.0-3.0); BG CARBOXYHEMOGLOBIN 0.8 % (0.5-1.5); BG DEOXYHEMOGLOBIN 6.3 % (0.0-5.0); BG FRACTION INSPIRED OXYGEN 21; BG HCO3 ACT 27.5 mmol/L (21.0-28.0); BG METHEMOGLOBIN 0.3 % (0.5-1.5); BG OXYGEN SATURATION 93.6 % (94.0-98.0); BG OXYHEMOGLOBIN 92.6 % (94.0-98.0); BG PCO2 30.9 mmHg (32.0-45.0); BG PH 7.568 (7.350-7.450); BG PO2 64.6 mmHg (83.0-108.0); BG SAMPLE SITE Other; BG TOTAL HEMOGLOBIN 12.4 g/dL (12.0-16.0); BG VENT MODE ROOM AIR
[2025-04-16] MEDS: INSULIN LISPRO 100 UNITS/ML SUBCUT SCH (18:41)
[2025-04-16] MEDS: AMIODARONE 200MG TABLET PO SCH (21:32)
[2025-04-17] VITALS (7 sets, daily range): BP systolic 92–169; BP diastolic 67–121; PULSE 81–101; RESP 13–26; TEMP 36.6–37.5; O2SAT 92–98
[2025-04-17 07:48] LABS: BASOPHILS % 0.2 % (0.0-2.0); EOSINOPHILS % 0.9 % (0.0-5.0); HEMATOCRIT. 34.5 % (36.0-48.0); HEMOGLOBIN. 11.7 g/dL (12.0-16.0); LYMPHOCYTES % 17.3 % (20.0-50.0); MEAN PLATELET VOLUME 10.9 fl (7.4-10.4); MONOCYTES % 12.9 % (2.0-8.0); NEUTROPHILS % 68.7 % (40.0-76.0); PLATELET 260 x1000/uL (130-400); RED BLOOD CELL COUNT 4.07 mill/uL (4.2-5.4); RED CELL DISTRIBUTION WIDTH 13.5 % (11.6-14.6)
[2025-04-17 08:00] LABS: ASPARTATE AMINOTRANSFERASE 98 IU/L (<34); CREATININE 1.7 mg/dL (0.6-1.0); UREA NITROGEN BLOOD 50 mg/dL (9-23)
[2025-04-17 08:01] LABS: PROTEIN TOTAL 6.5 g/dL (6.0-8.3)
[2025-04-17 08:02] LABS: BILIRUBIN DIRECT 0.3 mg/dL (<=3.0); BILIRUBIN TOTAL 0.8 mg/dL (0.1-1.0)
[2025-04-17] MEDS: POTASSIUM CHLORIDE 20MEQ/PACKET PO SCH (13:20)
== END 2025-04-17 18:36 | disposition home health service (06) | DRG 853 ==
LOC: ER 19:30 → 5EST 23:06 → EDBEDREQ 23:11 → ENRESERV 23:49 → 8WST 04-12 05:47 → 3WST 04-12 10:15 → CVICU 04-13 09:42 → 3WST 04-16 07:50
PROVIDERS: ADMIT Hospitalist; ATTEND Hospitalist
PROC: 5A09357 Assistance with Respiratory Ventilation, Less than 24 Consecutive Hours, Continuous Positive Airway Pressure (ICD-10-PCS; principal; 2025-04-09)
PROC: 3E0234Z Introduction of Serum, Toxoid and Vaccine into Muscle, Percutaneous Approach (ICD-10-PCS; 2025-04-10)
PROC: 4A023N7 Measurement of Cardiac Sampling and Pressure, Left Heart, Percutaneous Approach (ICD-10-PCS; 2025-04-12)
PROC: B2111ZZ Fluoroscopy of Multiple Coronary Arteries using Low Osmolar Contrast (ICD-10-PCS; 2025-04-12)
PROC: 06BQ4ZZ Excision of Left Saphenous Vein, Percutaneous Endoscopic Approach (ICD-10-PCS; 2025-04-13)
PROC: 021009W Bypass Coronary Artery, One Artery from Aorta with Autologous Venous Tissue, Open Approach (ICD-10-PCS; 2025-04-13)
PROC: 02100Z9 Bypass Coronary Artery, One Artery from Left Internal Mammary, Open Approach (ICD-10-PCS; 2025-04-13)
DX: A41.9 Sepsis, unspecified organism (principal); I21.4 Non-ST elevation (NSTEMI) myocardial infarction; J96.01 Acute respiratory failure with hypoxia; J18.9 Pneumonia, unspecified organism; R57.0 Cardiogenic shock; I50.23 Acute on chronic systolic (congestive) heart failure; N17.9 Acute kidney failure, unspecified; I13.0 Hypertensive heart and chronic kidney disease with heart failure and stage 1 through stage 4 chronic kidney disease, or unspecified chronic kidney disease; E87.20 Acidosis, unspecified; Z79.02 Long term (current) use of antithrombotics/antiplatelets; I69.354 Hemiplegia and hemiparesis following cerebral infarction affecting left non-dominant side; E11.22 Type 2 diabetes mellitus with diabetic chronic kidney disease; D64.9 Anemia, unspecified; I34.0 Nonrheumatic mitral (valve) insufficiency; K74.60 Unspecified cirrhosis of liver; N18.32 Chronic kidney disease, stage 3b; I42.9 Cardiomyopathy, unspecified; E83.39 Other disorders of phosphorus metabolism; Z91.148 Patient's other noncompliance with medication regimen for other reason; E11.65 Type 2 diabetes mellitus with hyperglycemia; E78.5 Hyperlipidemia, unspecified; E83.41 Hypermagnesemia; E11.42 Type 2 diabetes mellitus with diabetic polyneuropathy; E83.42 Hypomagnesemia; R53.81 Other malaise; E87.6 Hypokalemia; I25.10 Atherosclerotic heart disease of native coronary artery without angina pectoris; I48.91 Unspecified atrial fibrillation; Z23 Encounter for immunization; Z79.4 Long term (current) use of insulin; Z79.82 Long term (current) use of aspirin; Z79.899 Other long term (current) drug therapy
CPT/HCPCS: 36415; 36600; 71045; 71275; 76700; 80048; 80053; 80061; 80076; 80305; 81003; 82010; 82375; 82550; 82803; 82805; 82962; 83036; 83605; 83735; 83880; 83930; 83935; 84100; 84145; 84300; 84439; 84443; 84484; 85025; 85347; 85379; 85384; 86850; 86900; 86920; 90686; 90732; 93005; 93306; 93458; 93970; 94060; 94070; 94640; 94660; 94664; 97110; 97112; 97116; 97162; 97166; 97530; 97535; 99291; A4606; A4615; C1729; C1751; C1758; C1769; C1887; C1893; J0282; J0456; J0461; J0612; J0690; J0696; J1200; J1265; J1308; J1644; J1650; J1815; J1885; J1938; J1956; J2003; J2250; J2405; J2470; J2597; J2720; J2765; J3010; J3373; J3475; J3480; J3490; J7060; L3908; Q9967; A4217; C1713; J0131